=== PATIENT | male | born 1975 | race Caucasian/White ===

== ENCOUNTER 2017-12-10 22:02 | Emergency (ER) | payer MEDICAID ==
[~2017-12-10] VITALS: Ht 177.8 cm; Wt 94.0 kg
[~2017-12-10 22:02] MED LIST: Z.0.NO CURRENT MEDS
[2017-12-10 22:06] VITALS: BP 192/112; PULSE 89; RESP 14; TEMP 97.8; O2SAT 99
[2017-12-10 22:10] VITALS: BP_SYST 190; BP_SYST 203; BP_DIAS 109; BP_DIAS 119; PULSE 82; RESP 18; TEMP 97.8; O2SAT 97
--- NOTE | 2017-12-10 22:29 | PD ---
HPI Chief Complaint: Numbness/Tingling Time Seen by Provider: 22:12 Travel History International Travel<30 days: No Contact w/Intl Traveler<30days: No Traveled to known affect area: No History of Present Illness HPI Patient is a 42-year-old male who was sitting on the couch getting ready to watch a movie he says with his suddenly had the onset of tingling to his face and his right arm was the right face as well he continued and then he decided it was time to come to the ER. He has no cardiac history he has no diabetes no hypertension his father had a stroke at 70. He is healthy works out as cardiovascular works out all the time he has never had a stress test he is 42 years old. His says this has happened in the past when he gets anxious but never this bad that he wanted to come to the ER. Patient is awake alert initial quick initial exam neuro check he has no sensation deficit he has symmetric sensation face arms shoulders legs 5 out of 5 strength in all baires extraocular motions are intact initial neuro exam is negative NIH score would be 0. Patient will have a CAT scan and EKG given aspirin if the CAT scan is negative and given Ativan to see if there is an anxiety component patient reports that he does have history of panic attacks the present similar but never this bad his he and his agree on [facility] Past Medical History Cardiovascular Problems: No Cirrhosis: Yes Hepatitis: Yes Hypertension: No Musculoskeletal: No Reproductive: No Respiratory: No Renal Failure: Yes Seizures: Yes (ALCOHOL WITHDRAWAL INDUCED 10/08/08) Social History Alcohol Use: Yes (4-5 BOTTLES OF WINE/DAY) Tobacco Use: Yes Allergies-Medications (Allergen,Severity, Reaction): Coded Allergies: No Known Allergies (Verified , 10/15/08) Reported Meds & Prescriptions Reported Meds & Active Scripts Active Ativan (Lorazepam) 0.5 Mg Tab 0.5 Mg PO Q6H PRN Review of Systems Except as stated in HPI: all other systems reviewed are Neg Physical Exam Narrative GENERAL: pt seems wide-eyed and somewhat apprehensive ( anxious) SKIN: Warm and dry. HEAD: Atraumatic. Normocephalic. EYES: Pupils equal and round. No scleral icterus. No injection or drainage. ENT: No nasal bleeding or discharge. Mucous membranes pink and moist. NECK: Trachea midline. No JVD. CARDIOVASCULAR: Regular rate and rhythm. RESPIRATORY: No accessory muscle use. Clear to auscultation. Breath sounds equal bilaterally. GASTROINTESTINAL: Abdomen soft, non-tender, nondistended. Hepatic and splenic margins not palpable. MUSCULOSKELETAL: Extremities without clubbing, cyanosis, or edema. No obvious deformities. NEUROLOGICAL: Awake and alert. No obvious cranial nerve deficits. Motor grossly within normal limits. Five out of 5 muscle strength in the arms and legs. Normal speech. skin eval with touching skin all areas symmetrical no sensory deficit , and motors strength 5/5 all limbs smile symmetric and speech completely normal PSYCHIATRIC: Appropriate mood and affect; insight and judgment normal. Data Data Last Documented VS Vital Signs Date Time Temp Pulse Resp B/P (MAP) Pulse Ox O2 Delivery O2 Flow Rate FiO2 12/11/17 01:19 12/11/17 00:32 78 82 86 12/10/17 23:46 18 98 Room Air 12/10/17 22:10 97.8 Orders Orders Lorazepam (Ativan) (12/10/17 22:30) Ct Brain W/O Iv Contrast(Rout) (12/10/17 ) Complete Blood Count With Diff (12/10/17 22:20) Comprehensive Metabolic Panel (12/10/17 22:20) Troponin I (12/10/17 22:20) Electrocardiogram (12/10/17 ) Aspirin Chew (Aspirin Chew) (12/10/17 22:30) Ed Discharge Order (12/11/17 01:09) Labs Laboratory Tests Test 12/10/17 22:30 White Blood Count 5.7 TH/MM3 Red Blood Count 4.44 MIL/MM3 Hemoglobin 13.6 GM/DL Hematocrit 40.8 % Mean Corpuscular Volume 92.0 FL Mean Corpuscular Hemoglobin 30.7 PG Mean Corpuscular Hemoglobin Concent 33.4 % Red Cell Distribution Width 13.1 % Platelet Count 49 TH/MM3 Mean Platelet Volume 8.6 FL Neutrophils (%) (Auto) 60.6 % Lymphocytes (%) (Auto) 25.4 % Monocytes (%) (Auto) 9.6 % Eosinophils (%) (Auto) 2.8 % Basophils (%) (Auto) 1.6 % Neutrophils # (Auto) 3.5 TH/MM3 Lymphocytes # (Auto) 1.4 TH/MM3 Monocytes # (Auto) 0.5 TH/MM3 Eosinophils # (Auto) 0.2 TH/MM3 Basophils # (Auto) 0.1 TH/MM3 CBC Comment AUTO DIFF Differential Comment AUTO DIFF CONFIRMED Platelet Estimate LOW Platelet Morphology Comment NORMAL Blood Urea Nitrogen 14 MG/DL Creatinine 0.96 MG/DL Random Glucose 129 MG/DL Total Protein 8.0 GM/DL Albumin 4.0 GM/DL Calcium Level 8.6 MG/DL Alkaline Phosphatase 82 U/L Aspartate Amino Transf (AST/SGOT) 77 U/L Alanine Aminotransferase (ALT/SGPT) 94 U/L Total Bilirubin 0.5 MG/DL Sodium Level 135 MEQ/L Potassium Level 3.4 MEQ/L Chloride Level 100 MEQ/L Carbon Dioxide Level 25.7 MEQ/L Anion Gap 9 MEQ/L Estimat Glomerular Filtration Rate 86 ML/MIN Troponin I LESS THAN 0.02 NG/ML MDM Medical Decision Making Medical Screen Exam Complete: Yes Emergency Medical Condition: Yes Differential Diagnosis TIA vs todds paralysis sensory , vs cranial nerve praxial , vs bells palsy , varicella , vs anxiety attack somatized Narrative Course EKG and CT head negative and labs including troponin negative and patient trated after CT negative with aspitrin 162 mg chewable and Ativan 0.5 mg He fells complete resolutrin of his symptoms by the time all his results are back,,If TIA he has no comorbidities ( NO HTN NO DM no smoking NO HX ) that would suggest any return or propagation of possible vessel plaque to CVA within 30 days , Anxiety somatization most like Dx. D/ c ho,e with Rx for ativan 0.5mg 10 pills Diagnosis Primary Impression: Anxiety Patient Instructions: Anxiety (ED), General Instructions Scripts Lorazepam (Ativan) 0.5 Mg Tab 0.5 MG PO Q6H Y for ANXIETY AND/OR AGITATION, #10 TAB 0 Refills Prov: Ronaldo Newman MD 12/11/17 Disposition: 01 DISCHARGE HOME Ronaldo Newman MD Dec 10, 2017 22:29
[2017-12-10] MEDS ORDERED: LORazepam 0.5 MG TAB PO ONE (22:30)
[2017-12-10] MEDS ORDERED: ASPIRIN 81 MG CHEW TAB CHEW ONE (22:30)
[2017-12-10 22:41] LABS: AUTOMATED NEUTROPHIL # 3.5 TH/MM3 (1.8-7.7); BASOPHIL # 0.1 TH/MM3 (0-0.2); BASOPHIL % 1.6 % (0.0-2.0); EOSINOPHIL # 0.2 TH/MM3 (0-0.4); EOSINOPHIL % 2.8 % (0.0-4.0); HEMATOCRIT 40.8 % (39.0-51.0); HEMOGLOBIN 13.6 GM/DL (13.0-17.0); LYMPH % 25.4 % (9.0-44.0); LYMPHOCYTE # 1.4 TH/MM3 (1.0-4.8); MEAN CORPUSCULAR HEMOGLOBIN 30.7 PG (27.0-34.0); MEAN CORPUSCULAR HGB CONC 33.4 % (32.0-36.0); MEAN PLATELET VOLUME 8.6 FL (7.0-11.0); MONO % 9.6 % (0.0-8.0); MONOCYTE # 0.5 TH/MM3 (0-0.9); NEUT % 60.6 % (16.0-70.0); PLATELET COUNT 49 TH/MM3 (150-450); RED BLOOD COUNT 4.44 MIL/MM3 (4.50-5.90); RED CELL DISTRIBUTION WIDTH 13.1 % (11.6-17.2); WHITE BLOOD COUNT 5.7 TH/MM3 (4.0-11.0)
[2017-12-10 22:45] VITALS: BP 191/105; PULSE 80
[2017-12-10 22:53] LABS: CHLORIDE 100 MEQ/L (98-107); SODIUM (NA) 135 MEQ/L (136-145)
[2017-12-10 22:56] LABS: CALCIUM 8.6 MG/DL (8.5-10.1)
[2017-12-10 22:57] LABS: BICARBONATE 25.7 MEQ/L (21.0-32.0); BLOOD UREA NITROGEN 14 MG/DL (7-18); GLUCOSE,RANDOM 129 MG/DL (74-106)
[2017-12-10 23:00] LABS: ALT (GPT) 94 U/L (12-78); AST (GOT) 77 U/L (15-37); CREATININE 0.96 MG/DL (0.60-1.30); GLOMERULAR FILTRATION RATE 86 ML/MIN (>89)
[2017-12-10 23:02] LABS: TOTAL BILIRUBIN ADULT 0.5 MG/DL (0.2-1.0)
[2017-12-10 23:03] LABS: ALKALINE PHOSPHATASE 82 U/L (45-117)
[2017-12-10 23:05] LABS: TROPONIN I LESS THAN 0.02 NG/ML (0.02-0.05)
[2017-12-10 23:46] VITALS: BP 179/98; PULSE 87; RESP 18; O2SAT 98
--- NOTE | 2017-12-10 23:53 | RADRPT ---
EXAM DATE/TIME: 12/10/2017 23:00 [place] COMPARISON: No previous studies available for comparison. INDICATIONS : Right facial and upper extremity numbness. RADIATION DOSE: 62.03 CTDIvol (mGy) MEDICAL HISTORY : Seizures. Renal failure, acute. SURGICAL HISTORY : None. ENCOUNTER: Initial ACUITY: 1 day PAIN SCALE: 0/10 LOCATION: Right facial TECHNIQUE: Multiple contiguous axial images were obtained of the head. Using automated exposure control and adj ustment of the mA and/or kV according to patient size, radiation dose was kept as low as reasonably a chievable to obtain optimal diagnostic quality images. DICOM format image data is available electro nically for review and comparison. FINDINGS: CEREBRUM: The ventricles are normal for age. No evidence of midline shift, mass lesion, hemorrhage or acute in farction. No extra-axial fluid collections are seen. POSTERIOR FOSSA: The cerebellum and brainstem are intact. The 4th ventricle is midline. The cerebellopontine angle i s unremarkable. EXTRACRANIAL: The visualized portion of the orbits is intact. SKULL: The calvaria is intact. No evidence of skull fracture. CONCLUSION: Negative exam. Dario Moyer MD on December 10, 2017 at 23:51 Board Certified Radiologist. This report was verified electronically.
[2017-12-11 00:32] VITALS: BP_SYST 153; BP_SYST 164; BP_SYST 166; BP_DIAS 101; BP_DIAS 93
[2017-12-11] MEDS ORDERED: LORA-392 PO (01:07)
--- NOTE | 2017-12-11 18:13 | EKG ---
Date Performed: 12/10/2017 Time Performed: 22:43:06 PTAGE: 42 years EKG: Sinus rhythm NORMAL ECG Since PREVIOUS TRACING , no significant change noted PREVIOUS TRACIN10/15/2008 18.51 DOCTOR: Jim Nielsen Interpretating Date/Time 12/11/2017 18:12:50
== END 2017-12-11 01:21 | disposition home or self-care (01) ==
LOC: PHED 22:02
DX: F41.9 Anxiety disorder, unspecified (principal); Z87.19 Personal history of other diseases of the digestive system; Z87.448 Personal history of other diseases of urinary system; Z86.59 Personal history of other mental and behavioral disorders
CPT/HCPCS: 70450; 80053; 84484; 85025; 93005; 99285

== ENCOUNTER 2018-05-05 10:29 | Inpatient (IN) ==
--- NOTE | 2018-05-05 11:49 | ED ---
HPI General Chief complaint: Dental/Oral Stated complaint: Facial swelling x 2 days Time Seen by Provider: 05/05/18 11:23 Source: patient and family Mode of arrival: ambulatory Limitations: no limitations History of Present Illness HPI Narrative: Patient is a previously healthy 42-year-old male who presents with complaint of right face swelling for the last 2 days. He states that it just began all of a sudden 2 days ago with no preceding pain. This has never happened before. He describes some difficulty opening his mouth but denies sore throat, change in voice, shortness of breath. He denies fevers but does admit to chills. No nausea no vomiting. No chest pain. He believes he fell several days ago. Onset (ago): day(s) Duration: constant Severity: moderate Relieving factors: nothing Exacerbating factors: nothing Treatment prior to arrival: none Related Data Home Medications Medication Instructions Recorded Confirmed No Known Home Medications 05/05/18 05/05/18 Allergies Allergy/AdvReac Type Severity Reaction Status Date / Time No Known Allergies Allergy Verified 05/05/18 10:39 Review of Systems ROS: all other systems reviewed are negative Constitutional Reports chills and Denies fever(s) Eyes Denies blurry vision ENT Reports facial pain Cardiovascular Denies chest pain Respiratory Denies dyspnea Gastrointestinal Denies abdominal pain Genitourinary Denies flank pain Musculoskeletal Denies back pain Integumentary/Breasts Denies rash Neurologic Denies dizziness Psychiatric Denies confusion [facility] Medical History Medical History Patient denies medical problems (Acute) Surgical History Surgical History No history of previous surgery (Acute) Social History Social History Second Hand Smoke Exposure: No Smoking Status: Never smoker How Often Do You Have a Drink Containing Alcohol: Monthly or less Immunization History Tetanus Immunization: Unsure Hx Influenza Vaccine This Season: No Exam Narrative Exam Narrative: GENERAL: Well-appearing male in no acute distress, with a normal voice. SKIN: Focused skin assessment warm/dry. No erythema nor crepitus. HEAD: Atraumatic. Normocephalic. EYES: Pupils equal and round. No scleral icterus. No injection or drainage. ENT: No nasal bleeding or discharge. Mucous membranes pink and moist. No swelling to the posterior oropharynx. Significant swelling to the right side of the oropharynx without visible stone. NECK: Trachea midline. No JVD. Significant swelling to the right side of the face with some induration. No submental nor sublingual swelling. CARDIOVASCULAR: Regular rate and rhythm. No murmur appreciated. Intact and equal peripheral pulses RESPIRATORY: No accessory muscle use. Clear to auscultation. Breath sounds equal bilaterally. GASTROINTESTINAL: Abdomen soft, non-tender, nondistended. Hepatic and splenic margins not palpable. MUSCULOSKELETAL: No obvious deformities. No clubbing. No cyanosis. No edema. NEUROLOGICAL: Awake and alert. No obvious cranial nerve deficits. Motor grossly within normal limits. Normal speech. PSYCHIATRIC: Appropriate mood and affect; insight and judgment normal. Course Hospital Course: On patient arrival IV was established and labs were drawn and sent. He was given oral pain medicine. CT was ordered. Reevaluation(s) Reevaluation #1: Patient informed of results and states he feels comfortable at this time. Cranial/facial surgeon has been paged. Time: 13:13 Consultations Consultation #1: I spoke to Dr Sterling of Cranial/Facial surgery whom recommended the patient receive 10 gm decadron and be admitted to the hospitalist service at [facility] (Not [facility]). Time: 13:34 Initial Documented Vital Signs Temperature 100.0 F H 05/05/18 10:35 Pulse Rate 102 H 05/05/18 10:35 Respiratory Rate 16 05/05/18 10:35 Blood Pressure 168/106 H 05/05/18 10:35 Pulse Oximetry 96 05/05/18 10:35 Last Documented Vital Signs Temperature 100.0 F H 05/05/18 10:35 Pulse Rate 99 H 05/05/18 13:04 Respiratory Rate 16 05/05/18 13:04 Blood Pressure 175/106 H 05/05/18 13:04 Pulse Oximetry 99 05/05/18 13:04 Medical Decision Making [facility] Narrative Medical decision making narrative: Patient is a previously healthy 42-year-old male who presents with complaints of right facial swelling for the last 2 days. He thinks he may have fallen but does not quite remember. He denies fever. Heart rate was in the low 100s on arrival but he was afebrile (Temp < 100.4). Labs revealed leukocytosis at which time he was given clindamycin empirically. CT did show a mandibular fracture with gas concerning for an open mandibular fracture versus early infection, in addition to swelling that is affecting the airway. I spoke with Dr. Nix, of craniofacial surgery, who recommended that the patient received 10 mg of Decadron, and be transferred to the main hospital and admitted under the hospitalist service. I then spoke to Dr. Quesada, hospitalist on-call, whom I sent a admit the patient to intermediate care/ stepdown so they may be closely monitored at this time. Differential Diagnosis Differential Diagnosis: Differential diagnosis includes but is not limited to parotitis, sialoadenitis, Dinesh's angina, dental infection, facial infection, fracture. Medical Records Medical records reviewed: Yes I reviewed the patient's medical records. Lab Data Lab results reviewed: Yes I reviewed the patient's lab results. Lab results narrative: Leukocytosis but otherwise unremarkable. Result diagrams: 05/05/18 12:00 05/05/18 12:00 Lab Results 05/05/18 05/05/18 05/05/18 Range/Units 12:00 12:00 13:15 CBC w Diff Slide review pending WBC 14.8 H (4.0-11.0) th/mm3 RBC 4.09 L (4.50-5.90) mil/mm3 Hgb 13.4 (13.0-17.0) gm/dL Hct 38.2 L (39.0-51.0) % MCV 93.2 (80.0-100.0) fL MCH 32.7 (27.0-34.0) pg MCHC 35.1 (32.0-36.0) % RDW 13.4 (11.6-17.2) % Plt Count 74 L (150-450) th/mm3 MPV 8.0 (7.0-11.0) fL Neut % (Auto) 84.7 H (16.0-70.0) % Lymph % (Auto) 7.3 L (9.0-44.0) % [place] % (Auto) 7.6 (0.0-8.0) % Eos % (Auto) 0.3 (0.0-4.0) % Baso % (Auto) 0.1 (0.0-2.0) % Neut # (Auto) 12.6 H (1.8-7.7) th/mm3 Lymph # (Auto) 1.1 (1.0-4.8) th/mm3 [place] # (Auto) 1.1 H (0.0-0.9) th/mm3 Eos # (Auto) 0.0 (0.0-0.4) th/mm3 Baso # (Auto) 0.0 (0.0-0.2) th/mm3 WBC Differential . Differential Comment . Sodium 136 (136-145) meq/L Potassium 3.7 (3.5-5.1) meq/L Chloride 98 (98-107) meq/L Carbon Dioxide 30.6 (21.0-32.0) meq/L Anion Gap 7 (5-15) meq/L BUN 9 (7-18) mg/dL Creatinine 0.71 (0.60-1.30) mg/dL Estimated GFR Greater than 89 (>89) mL/min Random Glucose 100 (74-106) mg/dL Lactic Acid 1.0 (0.4-2.0) mmol/L Calcium 8.9 (8.5-10.1) mg/dL Imaging Data Attestation: I personally reviewed and interpreted this imaging study as follows : My impression: Fracture with swelling and soft tissue gas Radiologist's impression: Soft Tissue Neck CT 05/05/18 11:41 CONCLUSION: 1. Displaced fracture involving the posterior right mandible extends into the region of the posterior molar. There is adjacent soft tissue swelling and multiple gas bubbles. 2. There is also abnormal soft tissue prominence the right parapharyngeal space with mass effect and midline shift to the left of the airway. These findings were called to Dr. Sidhu in the emergency room at 1259 hours. Discharge Plan Discharge Disposition Patient Disposition: 30 Still Patient Discharge Condition Condition: Stable Discharge Details Diagnosis: Fracture of mandible, Sepsis Physicians Team ED Provider: Марина Sidhu Primary Care Provider: Primary Care Physici,No Other Providers: Lito Madsen Rxs /Orders / Referrals /Forms Prescriptions: No Action No Known Home Medications RF: 0 Status ED Status: With Doctor
[2018-05-05 12:04] LABS: Baso % (Auto) 0.1 % (0.0-2.0); Eos % (Auto) 0.3 % (0.0-4.0); Hematocrit 38.2 % (39.0-51.0); Hemoglobin 13.4 gm/dL (13.0-17.0); Lymph # (Auto) 1.1 th/mm3 (1.0-4.8); Lymph % (Auto) 7.3 % (9.0-44.0); Mean Corpuscular HGB Conc 35.1 % (32.0-36.0); Mean Corpuscular Hemoglobin 32.7 pg (27.0-34.0); Mean Corpuscular Volume 93.2 fL (80.0-100.0); Mono # (Auto) 1.1 th/mm3 (0.0-0.9); Mono % (Auto) 7.6 % (0.0-8.0); Neut # (Auto) 12.6 th/mm3 (1.8-7.7); Neut % (Auto) 84.7 % (16.0-70.0); Platelet Count 74 th/mm3 (150-450); Red Blood Count 4.09 mil/mm3 (4.50-5.90); Red Cell Distribution Width 13.4 % (11.6-17.2); White Blood Count 14.8 th/mm3 (4.0-11.0)
[2018-05-05 12:13] LABS: Chloride 98 meq/L (98-107); Potassium 3.7 meq/L (3.5-5.1); Sodium 136 meq/L (136-145)
[2018-05-05 12:18] LABS: Calcium 8.9 mg/dL (8.5-10.1)
[2018-05-05 12:19] LABS: Anion Gap 7 meq/L (5-15); Blood Urea Nitrogen 9 mg/dL (7-18); Carbon Dioxide 30.6 meq/L (21.0-32.0); Glucose,Random 100 mg/dL (74-106)
[2018-05-05 12:22] LABS: Glomerular Filtration Rate Greater Than 89 mL/min (>89)
[2018-05-05] MEDS ORDERED: Clindamycin 900 mg/NS Premix 900 MG/50 ML PIGGYBACK IV.SIG ONE (12:30)
[2018-05-05] MEDS ORDERED: Sod Chloride 0.9% Inj 1,000 ML IV.SIG ONE (12:57)
--- NOTE | 2018-05-05 13:11 | CT ---
EXAM DATE: 05/05/2018 12:51 PM EDT AGE/SEX: 42 years / Male INDICATIONS: Right facial swelling x 2 days. CLINICAL DATA: This is the patient's initial encounter. Patient reports that signs and symptoms have been present for 2 days and indicates a pain score of 8/10. MEDICAL/SURGICAL HISTORY: None. None. RADIATION DOSE: 13.39 CTDI (mGy) COMPARISON: No prior exams available for comparison. TECHNIQUE: Helical acquisition was performed using a multirow detector CT scanner during the adminis tration of 60 ml Omnipaque 350 (iohexol) nonionic water-soluble contrast as a single exam dose. Usi automated exposure control and adjustment of the mA and/or kV according to patient size, radiation dose was kept as low as reasonably achievable to obtain optimal diagnostic quality images. DICOM fo rmat image data is available electronically for review and comparison. FINDINGS: Nasopharynx: The nasopharyngeal airway has a normal configuration. No mucosal thickening or mass is seen. Oropharynx: There is abnormal soft tissue in the right parapharyngeal space which extends from the b ase the tongue to the prevertebral region. There is mass effect and midline shift of the airway to th e left. There are no gas bubbles in this region. There is no distinct fluid collection identified. Larynx: The supraglottic, glottic, and infraglottic structures are intact. Parapharyngeal: The parapharyngeal space is intact. Salivary Glands: The parotid and submandibular glands are intact. Lymph Nodes: No enlarged or necrotic-appearing nodes. There are multiple reactive appearing cervical chain nodes right greater than left. Thyroid: Homogeneous enhancement without evidence of nodule. Bones: There is a minimally displaced fracture through the posterior right mandible this extends serafin ng the posterior molar. There is adjacent soft tissue swelling and multiple gas bubbles. No additiona l mandibular fractures are identified. CONCLUSION: 1. Displaced fracture involving the posterior right mandible extends into the region of the posterio r molar. There is adjacent soft tissue swelling and multiple gas bubbles. 2. There is also abnormal soft tissue prominence the right parapharyngeal space with mass effect and midline shift to the left of the airway. These findings were called to Dr. Sidhu in the emergency room at 1259 hours. Electronically signed by: Rhys Jackman MD 05/05/2018 1:10 PM EDT
[2018-05-05] MEDS ORDERED: Sod Chloride 0.9% Inj 1,000 ML IV.SIG SCH (13:15)
[2018-05-05] MEDS ORDERED: Dexamethasone Inj 20 MG/5 ML Vial IV.PUSH ONE (13:30)
[2018-05-05] MEDS ORDERED: Morphine Inj 4 MG/ML Vial IV.PUSH ONE (13:51)
[2018-05-05] MEDS: Sod Chloride 0.9% Inj 1,000 ML IV.SIG SCH ×2 (13:59→15:25)
[2018-05-05] MEDS ORDERED: Bisacodyl 10 MG Supp RECTAL PRN (14:02)
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
[2018-05-05] MEDS: Morphine Sulfate Inj 2 MG/ML Vial IV.PUSH PRN ×2 (18:12→22:13)
[2018-05-05] MEDS: Clindamycin 900 mg/NS Premix 900 MG/50 ML PIGGYBACK IV.SIG SCH (21:27)
[2018-05-06] MEDS: Clindamycin 900 mg/NS Premix 900 MG/50 ML PIGGYBACK IV.SIG SCH ×2 (05:56→12:42)
[2018-05-06 06:08] LABS: Baso % (Auto) 0.1 % (0.0-2.0); Hematocrit 37.4 % (39.0-51.0); Lymph # (Auto) 0.9 th/mm3 (1.0-4.8); Lymph % (Auto) 5.6 % (9.0-44.0); Mean Corpuscular HGB Conc 34.7 % (32.0-36.0); Mean Corpuscular Hemoglobin 31.9 pg (27.0-34.0); Mean Corpuscular Volume 91.9 fL (80.0-100.0); Mean Platelet Volume 9.1 fL (7.0-11.0); Mono # (Auto) 0.5 th/mm3 (0.0-0.9); Mono % (Auto) 3.4 % (0.0-8.0); Neut # (Auto) 14.3 th/mm3 (1.8-7.7); Neut % (Auto) 90.9 % (16.0-70.0); Platelet Count 79 th/mm3 (150-450); Red Blood Count 4.07 mil/mm3 (4.50-5.90); Red Cell Distribution Width 14.2 % (11.6-17.2); White Blood Count 15.7 th/mm3 (4.0-11.0)
[2018-05-06 06:24] LABS: Anion Gap 8 meq/L (5-15); Blood Urea Nitrogen 9 mg/dL (7-18); Calcium 8.6 mg/dL (8.5-10.1); Carbon Dioxide 27.2 meq/L (21.0-32.0); Chloride 104 meq/L (98-107); Glomerular Filtration Rate Greater Than 89 mL/min (>89); Glucose,Random 136 mg/dL (74-106); Potassium 3.8 meq/L (3.5-5.1); Sodium 139 meq/L (136-145)
[2018-05-06 08:05] LABS: Lymphocytes 8 % (9-44); Monocytes 2 % (0-8)
[2018-05-06 08:08] LABS: Platelet Morphology Normal (Normal)
[2018-05-06] MEDS: Morphine Sulfate Inj 2 MG/ML Vial IV.PUSH PRN ×3 (08:27→20:05)
--- NOTE | 2018-05-06 09:11 | P.PN ---
Subjective Interval history: Follow-up mandibular fracture seen in PACU status post ORIF. He is waking up states he has no medical conditions. Does not take any medications. Anesthesia records reviewed. Discussed with [facility]. Physical Exam Vital signs: Vital Signs 05/05/18 10:35 05/05/18 11:41 05/05/18 12:58 Temperature 100.0 F H Pulse Rate 102 H Respiratory Rate 16 18 Blood Pressure 168/106 H Pulse Oximetry 96 100 100 05/05/18 13:04 05/05/18 15:27 05/05/18 18:08 Temperature 99.9 F H 99 F Pulse Rate 99 H 97 H 86 Respiratory Rate 16 18 16 Blood Pressure 175/106 H 152/88 H 159/95 H Pulse Oximetry 99 95 96 05/05/18 18:32 05/05/18 21:06 05/05/18 23:30 Temperature 98.5 F 98.1 F Pulse Rate 90 Respiratory Rate 16 24 Blood Pressure 158/89 H 173/109 H Pulse Oximetry 98 05/06/18 00:00 05/06/18 00:15 05/06/18 00:30 Temperature 98.1 F Pulse Rate 91 H 78 Respiratory Rate 19 24 Blood Pressure 156/103 H Pulse Oximetry 98 05/06/18 03:54 05/06/18 04:00 05/06/18 04:30 Temperature 98.3 F Pulse Rate 65 65 Respiratory Rate 14 Blood Pressure 141/86 H Pulse Oximetry 97 98 Intake & Output 05/05/18 05/06/18 05/06/18 18:59 06:59 18:59 Intake Total 2049 1100 / 1100 Output Total 500 / 500 Balance 2049 600 / 600 Weight 96 kg 96.8 kg Intake: IV 2049 1100 / 1100 LR 1000 mL Inj 1,000 ML @ 100 1000 / 1000 mls/hr IV.CONT .Q10H [facility] Rx#: [id number] Cleocin 900 mg/NS Premix 900 mg 50 / 50 100 / 100 In 50 ml @ 100 mls/hr IV.SIG Q8H [facility] Rx#:[id number] NS Inj 1,000 ML @ Wide Open IV. 1999 / 1999 SIG .Q0M [facility] Rx#:[id number] Output: Urine 500 / 500 Narrative: GENERAL: Well-nourished, well-developed patient. SKIN: Warm and dry. HEAD: Right jaw erythema and edema with gross asymmetry CARDIOVASCULAR: Regular rate and rhythm without murmurs, gallops, or rubs. RESPIRATORY: Breath sounds equal bilaterally. No accessory muscle use. GASTROINTESTINAL: Abdomen soft, non-tender, nondistended. MUSCULOSKELETAL: No cyanosis, or edema. BACK: Nontender without obvious deformity. No CVA tenderness. NEUROLOGICAL: Lethargic Cranial nerves II through XII intact. Moving all extremities Results - Labs CBC & Chem 7: 05/06/18 05:05 05/06/18 05:05 Laboratory Results - last 24 hr 05/05/18 05/05/18 05/05/18 12:00 12:00 13:15 CBC w Diff Slide review pending WBC 14.8 H RBC 4.09 L Hgb 13.4 Hct 38.2 L MCV 93.2 MCH 32.7 MCHC 35.1 RDW 13.4 Plt Count 74 L MPV 8.0 Prelim Diff (Auto) Neut % (Auto) 84.7 H Lymph % (Auto) 7.3 L Roberts % (Auto) 7.6 Eos % (Auto) 0.3 Baso % (Auto) 0.1 Neut # (Auto) 12.6 H Lymph # (Auto) 1.1 Roberts # (Auto) 1.1 H Eos # (Auto) 0.0 Baso # (Auto) 0.0 WBC Differential . Seg Neuts % (Manual) Band Neuts % (Manual) Lymphocytes % (Manual) Monocytes % (Manual) Abs Neuts (Manual) Differential Comment . Platelet Estimate Platelet Morphology Sodium 136 Potassium 3.7 Chloride 98 Carbon Dioxide 30.6 Anion Gap 7 BUN 9 Creatinine 0.71 Estimated GFR Greater than 89 Random Glucose 100 Lactic Acid 1.0 Calcium 8.9 Nasal Screen MRSA (PCR) 05/06/18 05/06/18 05/06/18 00:30 05:05 05:05 CBC w Diff WBC 15.7 H RBC 4.07 L Hgb 13.0 Hct 37.4 L MCV 91.9 MCH 31.9 MCHC 34.7 RDW 14.2 Plt Count 79 L MPV 9.1 Prelim Diff (Auto) Slide review pending Neut % (Auto) 90.9 H Lymph % (Auto) 5.6 L Roberts % (Auto) 3.4 Eos % (Auto) 0.0 Baso % (Auto) 0.1 Neut # (Auto) 14.3 H Lymph # (Auto) 0.9 L Roberts # (Auto) 0.5 Eos # (Auto) 0.0 Baso # (Auto) 0.0 WBC Differential Manual diff final Seg Neuts % (Manual) 82 H Band Neuts % (Manual) 8 H Lymphocytes % (Manual) 8 L Monocytes % (Manual) 2 Abs Neuts (Manual) 14.1 H Differential Comment . Platelet Estimate Low L Platelet Morphology Normal Sodium 139 Potassium 3.8 Chloride 104 Carbon Dioxide 27.2 Anion Gap 8 BUN 9 Creatinine 0.53 L Estimated GFR Greater than 89 Random Glucose 136 H Lactic Acid Calcium 8.6 Nasal Screen MRSA (PCR) Not detected - Imaging Impressions Soft Tissue Neck CT 05/05/18 11:41 CONCLUSION: 1. Displaced fracture involving the posterior right mandible extends into the region of the posterior molar. There is adjacent soft tissue swelling and multiple gas bubbles. 2. There is also abnormal soft tissue prominence the right parapharyngeal space with mass effect and midline shift to the left of the airway. These findings were called to Dr. Sidhu in the emergency room at 1259 hours. - Procedures ORIF right mandible Assessment and Plan - Assessment (1) Fracture of mandible Code(s): S02.609A - Fracture of mandible, unspecified, initial encounter for closed fracture Status: Acute Plan: Continue with pain management, IV steroids 1 Follow-up with surgery for repair (2) Sepsis Code(s): A41.9 - Sepsis, unspecified organism Status: Acute Plan: Continue current antibiotics, worrisome for abscess in the jaw - Plan (1) Fracture of mandible Code(s): S02.609A - Fracture of mandible, unspecified, initial encounter for closed fracture Status: Acute Plan: Status post ORIF. Continue postoperative care with clear liquid diet advance as tolerated, pain management with Percocet and IV morphine counseled regarding narcotics. Wound care. (2) Sepsis Code(s): A41.9 - Sepsis, unspecified organism Status: Acute Plan: Continue current antibiotics IV clindamycin low risk for DVT Discharge Planning: Per OMFS (1) Fracture of mandible Qualifiers: Encounter type: initial encounter Fracture type: open Mandible location: unspecified site of mandible Laterality: right Qualified Code(s): S02.609B - Fracture of mandible, unspecified, initial encounter for open fracture (2) Sepsis Qualifiers: Sepsis type: methicillin susceptible Staphylococcus aureus Qualified Code(s) : A41.01 - Sepsis due to Methicillin susceptible Staphylococcus aureus
[2018-05-06] MEDS ORDERED: Labetalol HCl Inj 100 MG/20 ML Vial IV.CONT ONE (12:00)
[2018-05-06] MEDS ORDERED: Glycopyrrolate Inj 1 MG/5 ML Syringe IV.PUSH ONE (12:00)
[2018-05-06] MEDS ORDERED: Lidocaine PF 1% Inj 5 ML Syringe INFILTRATN ONE (12:00)
[2018-05-06] MEDS ORDERED: Neostigmine Inj 5 MG/5 ML Syringe IV.PUSH ONE (12:00)
[2018-05-06] MEDS ORDERED: Lidocaine 2%/Epinephrine 1:200,000 PF Inj 20 ML Vial ONE (14:27)
[2018-05-06] MEDS ORDERED: Lidocaine 1%/Epinephrine 1:100,000 Inj 20 ML Vial ONE (14:27)
[2018-05-06] MEDS ORDERED: MethylPREDNISolone Sod Succinate Inj 125 MG/2 ML Vial ONE (14:27)
[2018-05-06] MEDS ORDERED: Ketamine Inj 50 MG/5 ML Syringe IV.PUSH ONE (14:28)
[2018-05-06] MEDS ORDERED: Chlorhexidine Gluconate 0.12% Liq 15 ML UDC ONE (15:57)
[2018-05-06] MEDS ORDERED: Clindamycin Inj 600 MG/4 ML Vial ONE (16:06)
[2018-05-06] MEDS: Dextrose 5%/NaCl 0.45% Inj 1,000 ML IV.SIG SCH (16:45)
[2018-05-06] MEDS ORDERED: fentaNYL Citrate Inj 100 MCG/2 ML Ampul ONE (17:10)
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
[2018-05-06] MEDS: Clindamycin 300 mg/NS Premix 300 MG/50 ML PIGGYBACK IV.SIG SCH (23:22)
[2018-05-07] MEDS: Morphine Sulfate Inj 2 MG/ML Vial IV.PUSH PRN (01:40)
[2018-05-07] MEDS: Clindamycin 300 mg/NS Premix 300 MG/50 ML PIGGYBACK IV.SIG SCH ×2 (04:49→12:44)
[2018-05-07] MEDS: Dextrose 5%/NaCl 0.45% Inj 1,000 ML IV.SIG SCH ×3 (08:08→23:00)
[2018-05-07] MEDS ORDERED: Vancomycin Consult Pharmacy 1 EACH OTHER SCH (12:00)
[2018-05-07] MEDS ORDERED: Vancomycin Inj 1,750 MG in Sodium Chlor 0.9% Inj 500 ML IV.SIG SCH (15:00)
--- NOTE | 2018-05-07 15:49 | P.PNIM ---
Subjective Interval history: The patient was resting comfortably in bed. He said his swelling has come down. He wanted to eat something. He had questions about his infection. Discussed with nursing at the bedside. The patient was ambulatory. Physical Exam Vital signs: Vital Signs 05/06/18 16:25 05/06/18 16:30 05/06/18 16:45 Temperature 98.1 F Pulse Rate 80 76 74 Respiratory Rate 16 14 14 Blood Pressure 124/74 130/79 137/85 Pulse Oximetry 96 94 L 93 L 05/06/18 17:00 05/06/18 17:20 05/06/18 20:00 Temperature 98.1 F Pulse Rate 71 72 87 Respiratory Rate 14 14 15 Blood Pressure 129/79 138/88 125/76 Pulse Oximetry 93 L 93 L 98 05/06/18 20:34 05/07/18 00:00 05/07/18 08:00 Temperature 98 F 97.6 F Pulse Rate 79 62 Respiratory Rate 18 15 18 Blood Pressure 158/81 H 153/95 H Pulse Oximetry 96 97 05/07/18 12:00 Temperature 97.2 F L Pulse Rate 63 Respiratory Rate 18 Blood Pressure 152/96 H Pulse Oximetry 96 Intake & Output 05/06/18 05/07/18 05/07/18 18:59 06:59 18:59 Intake Total 2050 / 0 1100 / 1100 Output Total 100 / 100 Balance 1950 / 1950 1100 / 1100 Weight 96.9 kg Intake: IV 1050 / 1050 1100 / 1100 LR 1000 mL Inj 1,000 ML @ 100 1000 / 1000 1000 / 1000 mls/hr IV.CONT .Q10H [facility] Rx#: [id number] Cleocin 300 mg/NS Premix 300 mg 100 / 100 In 50 ml @ 100 mls/hr IV.SIG Q6H [facility] Rx#:[id number] Cleocin 900 mg/NS Premix 900 mg 50 / 50 In 50 ml @ 100 mls/hr IV.SIG Q8H [facility] Rx#:[id number] Anesthesia Amount 1000 / 1000 Output: Estimated Blood Loss 100 / 100 Other: Date of Last Bowel Movement 05/05/18 Narrative: GENERAL: Well-nourished, well-developed patient. SKIN: Warm and dry. HEAD: Right jaw with edema, asymmetry CARDIOVASCULAR: Regular rate and rhythm without murmurs, gallops, or rubs. RESPIRATORY: Breath sounds equal bilaterally. No accessory muscle use. GASTROINTESTINAL: Abdomen soft, non-tender, nondistended. MUSCULOSKELETAL: No cyanosis, or edema. BACK: Nontender without obvious deformity. No CVA tenderness. NEUROLOGICAL: Cranial nerves II through XII intact. Moving all extremities. Speech is clear. Results - Labs CBC & Chem 7: 05/06/18 05:05 05/06/18 05:05 Microbiology 05/05/18 13:15 Blood - Peripheral Aerobic Blood Culture - Preliminary No growth in 2 days 05/05/18 13:15 Blood - Peripheral Anaerobic Blood Culture - Preliminary No growth in 2 days 05/05/18 13:20 Blood - Peripheral Aerobic Blood Culture - Preliminary No growth in 2 days 05/05/18 13:20 Blood - Peripheral Anaerobic Blood Culture - Preliminary gram positive cocci - Procedures ORIF right mandible Assessment and Plan - Assessment (1) Fracture of mandible Code(s): S02.609A - Fracture of mandible, unspecified, initial encounter for closed fracture Status: Acute Plan: Continue with pain management, IV steroids 1 Follow-up with surgery for repair (2) Sepsis Code(s): A41.9 - Sepsis, unspecified organism Status: Acute Plan: Continue current antibiotics, worrisome for abscess in the jaw - Plan Fracture of mandible The pt says he had a mechanical fall. Facial surgery consult appreciated. S/p repair. - Continue with pain management. - wound care and diet per surgery. Sepsis Pt with leukocytosis and tachycardia on presentation. One blood culture positive for GPC in anaerobic bottle. - start vancomycin and consult ID. HTN Exacerbated by pain. - pain control. - clonidine or Vasotec as needed. PPx: Ambulation (1) Fracture of mandible Qualifiers: Encounter type: initial encounter Fracture type: open Mandible location: unspecified site of mandible Laterality: right Qualified Code(s): S02.609B - Fracture of mandible, unspecified, initial encounter for open fracture (2) Sepsis Qualifiers: Sepsis type: methicillin susceptible Staphylococcus aureus Qualified Code(s) : A41.01 - Sepsis due to Methicillin susceptible Staphylococcus aureus
[2018-05-07] MEDS: Ampicillin/Sulbactam Inj 3 GM in Sodium Chloride 0.9% Inj 100 ML IV.SIG SCH (20:28)
--- NOTE | 2018-05-07 21:01 | P.CONID ---
History of Present Illness Service: ID Consult date: 05/07/18 Requesting Physician: Rhys Iglesias Reason for Consult: infected R mandibular fracture Primary Care Provider: No Primary Care Physician Family Provider: No Primary Care Physician Chief Complaint: Right jaw pain and swelling History of Present Illness: 42 yo male presented few days ago with swollen painful R jaw CT showed fracture and fluid and gas Pt was operated by [facility] and his jaw was wired Op findings include abscess fracture was estimated to be few days old and it looked infected during procedure Pt stated he fractured his jaw as a result of a fall On presentation low grade fever up to 100.0 and leukocytosis of 14 K Pt was started on vancomycin and clindamycin blood clx remain negative OP clx not availbale Pt states improvement with reduction of pain and swelling NO fevers No ah/o allergic reactions Review of Systems All other systems reviewed negative except as stated in HPI PMFSH - History History Provided By: Patient - Medical History Medical History: Medical History (Last Reviewed 05/08/18 @ 06:55 by Julianna Aguayo MD) Patient denies medical problems - Surgical History Surgical History: Surgical History (Last Reviewed 05/08/18 @ 06:55 by Julianna Aguayo MD) No history of previous surgery - Family History Family History: Family History (Last Reviewed 05/08/18 @ 06:55 by Julianna Aguayo MD) Other DM2 (diabetes mellitus, type 2) - Tobacco History Second Hand Smoke Exposure: Yes Tobacco Use In Past 30 Days: No Smoking Status: Never smoker - Alcohol History How Often Do You Have a Drink Containing Alcohol: Monthly or less - Substance Use History Substance History: No History of Abuse - Immunization History Tetanus Immunization: Unsure Hx Influenza Vaccine This Season: No Medications and Allergies Active Medications: Active Medications Albuterol (Duoneb Neb (Prn)) 1 ampul NEB Q6HR WHILE AWAKE NEB PRN PRN Reason: DYSPNEA Bisacodyl (Dulcolax Supp) 10 mg RECTAL DAILY PRN PRN Reason: SEVERE CONSITIPATION Dextrose/Sodium Chloride (D5w/1/2 Ns Inj) 1,000 mls @ 110 mls/hr IV.SIG .Q9H6M [facility] Last Admin: 05/07/18 12:46 Dose: Not Given Pharmacy Profile Note (Vancomycin Consult Pharmacy) 0 mls @ 0 mls/hr OTHER UNSCH [facility] Ampicillin Sodium/Sulbactam (Sodium 3 gm/ Sodium Chloride) 100 mls @ 200 mls/ hr IV.SIG Q6H [facility] Last Admin: 05/07/18 20:28 Dose: 200 mls/hr Miscellaneous Information ([facility] Nursing Information) 1 each OTHER UNSCH PRN PRN Reason: SEE LABEL COMMENTS Miscellaneous Information ([facility] Ordered Lab Info) 0 each OTHER ONCE ONE Stop: 05/09/18 02:46 Morphine Sulfate (Morphine Inj) 2 mg IV.PUSH Q3H PRN PRN Reason: PAIN SCALE 6 TO10 Last Admin: 05/07/18 01:40 Dose: 2 mg Ondansetron HCl (Zofran Inj) 4 mg IV.PUSH Q6H PRN PRN Reason: NAUSEA OR VOMITING Oxycodone/Acetaminophen (Percocet 7.5/325 Mg) 1 tab PO Q4H PRN PRN Reason: PAIN SCALE 1 TO 5 Last Admin: 05/07/18 18:54 Dose: 1 tab Sodium Chloride (Ns Flush) 2 ml IV.FLUSH PRN PRN PRN Reason: FLUSH AFTER USING IV ACCESS Allergies Allergy/AdvReac Type Severity Reaction Status Date / Time No Known Allergies Allergy Verified 05/05/18 10:39 Home Medications Medication Instructions Recorded Confirmed Type No Known Home Medications 05/05/18 05/05/18 History Exam Vital signs: Vital Signs 05/07/18 00:00 05/07/18 08:00 05/07/18 12:00 Temperature 98 F 97.6 F 97.2 F L Pulse Rate 79 62 63 Respiratory Rate 15 18 18 Blood Pressure 158/81 H 153/95 H 152/96 H Pulse Oximetry 96 97 96 05/07/18 16:00 Temperature 98.1 F Pulse Rate 79 Respiratory Rate 17 Blood Pressure 168/95 H Pulse Oximetry 97 Intake & Output 05/07/18 05/07/18 05/08/18 06:59 18:59 06:59 Intake Total 1100 / 1100 480 / 480 Balance 1100 / 1100 480 / 480 Weight 96.9 kg Intake: IV 1100 / 1100 LR 1000 mL Inj 1,000 ML @ 100 1000 / 1000 mls/hr IV.CONT .Q10H [facility] Rx#: [id number] Cleocin 300 mg/NS Premix 300 mg 100 / 100 In 50 ml @ 100 mls/hr IV.SIG Q6H [facility] Rx#:[id number] Oral 480 / 480 Other: # Voids 3 Date of Last Bowel Movement 05/05/18 - Constitutional no acute distress, average body habitus - Routine HEENT Exam Head: Present: normocephalic, atraumatic Eye: Present: EOMI, PERRL ENT: Present: mucous membranes moist, oropharynx clear Comments: R side of the face edematous and indurated along the jaw line and submandibular area + tender to plaption - Routine Neck Exam Present: supple, full ROM - Routine Respiratory Exam Present: CTA bilaterally Comments: good effort - Routine Cardiovascular Exam Present: RRR, S1, S2 Comments: well perfused perifery good refill - Routine Abdominal Exam Present: soft, normoactive bowel sounds Comments: no organomegaly no masses - Routine Extremities Exam Comments: bno cyanosis, clubbing edema - Routine Skin Exam Present: intact, dry, warm Comments: no rash - Routine Neurological Exam Present: alert, oriented X3, CN II-XII intact, moving all extremities, vision grossly intact, hearing grossly intact, normal speech - Routine Psychiatric Exam Present: normal affect, normal thought process, cooperative Results - Labs CBC & Chem 7: 05/06/18 05:05 05/06/18 05:05 - Imaging Soft Tissue Neck CT 05/05/18 11:41 CONCLUSION: 1. Displaced fracture involving the posterior right mandible extends into the region of the posterior molar. There is adjacent soft tissue swelling and multiple gas bubbles. 2. There is also abnormal soft tissue prominence the right parapharyngeal space with mass effect and midline shift to the left of the airway. These findings were called to Dr. Sidhu in the emergency room at 1259 hours. Assessment and Plan - Plan Infected R mandibular fracture sp wiring fever, leukocytosis dc vancomycin and clindamycin start Unasyn IV anticipate transitipn to po abx
[2018-05-08] MEDS: Ampicillin/Sulbactam Inj 3 GM in Sodium Chloride 0.9% Inj 100 ML IV.SIG SCH ×2 (01:35→09:48)
[2018-05-08] MEDS: Dextrose 5%/NaCl 0.45% Inj 1,000 ML IV.SIG SCH (06:22)
--- NOTE | 2018-05-08 10:35 | P.DS ---
Date of admission: 05/05/18 14:27 Primary care physician: No Primary Care Physician Anticipated date of discharge: 05/08/18 Brief History from admission: Patient is a 42-year-old gentleman with no medical history. There is a nonspecific incident of trauma that happened 2 days ago. He has some difficulty opening his mouth and came to the emergency room today. He has no fevers or chills but did have some increased discomfort so he was seen in the emergency room today low-grade temperature with some tachycardia and an CT of the mandible does show fracture with gas concerning for an open mandibular fracture versus early infection in addition to some swelling in the airway. Pain is improved with IV morphine. Craniofacial has been consulted and recommended surgery evaluation with IV steroids DS: Diagnosis - Discharge Diagnosis (1) Fracture of mandible Status: Acute (2) Sepsis Status: Acute DS: Medications - Discharge Medications Prescriptions: amoxicillin-pot clavulanate [Augmentin] 1 tab PO TID #84 tab oxycodone-acetaminophen 1 tab PO Q4H PRN #18 tab PRN Reason: Pain Saccharomyces boulardii [Florastor] 250 mg PO BID 28 Days #56 cap DS: Summary Hospital Course: Fracture of mandible The pt says he had a mechanical fall. CT showed: Displaced fracture involving the posterior right mandible extends into the region of the posterior molar; There is adjacent soft tissue swelling and multiple gas bubbles; There is also abnormal soft tissue prominence the right parapharyngeal space with mass effect and midline shift to the left of the airway. Facial surgery was consulted. S/p open reduction internal fixation of right mandible fracture with KLS 2.7 locking plate, 3 holes in the proximal, 2 screws in the distal segment; A debridement of infected tissue and irrigation with incision and drainage of abscess on 05/06/18. He will follow up with oral surgery as an outpt. His diet will be advanced to a soft food diet per surgery. He will receive pain control as needed. Sepsis Pt with leukocytosis and tachycardia on presentation. He was started on IV antibiotics. One blood culture positive for anaerobic GPC and another was positive for Corynebacterium. ID was consulted. Antibiotics were changed to Unasyn. The pt will be discharged with four weeks of Augmentin per ID. HTN Exacerbated by pain. He received pain control. He will follow up with his PCP. - Time Spent with Patient Total time spent providing and/or coordinating discharge services: Greater than 30 minutes - Quality: VTE Deep Vein Thrombosis/Pulmonary Embolism Present on Admission: No Exam Vital signs: Vital Signs 05/07/18 12:00 05/07/18 16:00 05/07/18 19:27 Temperature 97.2 F L 98.1 F 98.4 F Pulse Rate 63 79 82 Respiratory Rate 18 17 18 Blood Pressure 152/96 H 168/95 H 148/58 H Pulse Oximetry 96 97 95 05/07/18 20:00 05/07/18 21:25 05/08/18 00:52 Temperature 97.6 F Pulse Rate 64 Respiratory Rate 18 Blood Pressure 128/81 Pulse Oximetry 100 100 97 05/08/18 04:00 05/08/18 08:00 Temperature 97.3 F L Pulse Rate 60 Respiratory Rate 18 17 Blood Pressure 160/94 H Pulse Oximetry 98 Intake & Output 05/07/18 05/08/18 05/08/18 18:59 06:59 18:59 Intake Total 480 / 480 1247.5 / 1247.5 Balance 480 / 480 1247.5 / 1247.5 Weight 96.9 kg Intake: IV 767.5 / 767.5 Unasyn Inj 3 GM In NS Inj 100 200 / 200 ML @ 200 mls/hr IV.SIG Q6H [facility] Rx#:[id number] Vancomycin Inj 1,750 MG In NS 517.5 / 517.5 Inj 500 ML @ 250 mls/hr IV.SIG Q12H [facility] Rx#:[id number] Oral 480 / 480 480 / 480 Other: # Voids 3 3 Date of Last Bowel Movement 05/05/18 05/05/18 # Bowel Movements 0 Narrative: GENERAL: Well-nourished, well-developed patient. SKIN: Warm and dry. HEAD: Right jaw with edema, asymmetry CARDIOVASCULAR: Regular rate and rhythm without murmurs, gallops, or rubs. RESPIRATORY: Breath sounds equal bilaterally. No accessory muscle use. GASTROINTESTINAL: Abdomen soft, non-tender, nondistended. MUSCULOSKELETAL: No cyanosis, or edema. BACK: Nontender without obvious deformity. No CVA tenderness. NEUROLOGICAL: Cranial nerves II through XII intact. Moving all extremities. Speech is clear. Results Procedures completed during hospitalization: ORIF right mandible Labs on day of discharge: Preliminary micro results at discharge 05/05/18 13:15 Aerobic Blood Culture - Preliminary Blood - Peripheral No growth in 2 days Anaerobic Blood Culture - Preliminary No growth in 2 days 05/05/18 13:20 Aerobic Blood Culture - Preliminary Blood - Peripheral No growth in 2 days Anaerobic Blood Culture - Preliminary gram positive cocci - Impressions ITS Impressions Soft Tissue Neck CT 05/05/18 11:41 CONCLUSION: 1. Displaced fracture involving the posterior right mandible extends into the region of the posterior molar. There is adjacent soft tissue swelling and multiple gas bubbles. 2. There is also abnormal soft tissue prominence the right parapharyngeal space with mass effect and midline shift to the left of the airway. These findings were called to Dr. Sidhu in the emergency room at 1259 hours. Discharge Plan - Discharge Disposition Patient Disposition: 01 Discharge Home - Discharge Condition Condition: Stable - Discharge Order Discharge Orders: Discharge Order (Routine); Ordered 05/08/18 Ordered By: Rhys Iglesias - Discharge Details Anticipated Discharge Date: 05/08/18 Discharge Comment: Please discharge ONLY when infectious disease antibiotic recommendations for discharge are in - Physicians Team Primary Care Provider: Primary Care Kelli Bryan Attending Provider: Rhys Iglesias Other Providers: Lito Madsen DDS ; Julianna Aguayo MD
--- NOTE | 2018-05-08 11:44 | P.PNADD ---
Addendum to Inpatient Note Additional information: blood clx growing anaerobic GPC 1/2 sets Source is odontogenic abscess Cont abx x 4 weeks since he has hardware OK to switch to aral augmentin 500 tid Labs CBC, CMP weekly dw Dr Iglesias
[2018-05-09] MEDS ORDERED: Pharmacy Ordered Lab Info OTHER ONE (02:45)
== END 2018-05-08 12:34 | disposition home or self-care (01) ==
LOC: PHED 10:29 → PHEDA 14:27 → N03 23:20 → N06 05-06 17:41
PROVIDERS: ADMIT Hospitalist; ATTEND Hospitalist
PROC: ORIFMAN (2018-05-06 14:40)